=== PATIENT | female | born 2000 | race Caucasian/White ===

== ENCOUNTER 2022-11-22 05:30 | Observation (INO) ==
--- NOTE | 2022-11-12 10:24 | Anesthesiology Consultation ---
Date of Service November 12, 2022 Assessment & Plan (1) Encounter for pre-operative examination: Chart Review Chart Review: Acceptable Risk for Surgery and Patient NOT seen in Pre Admission Testing - Check test AM DOS Transgender male -COVID screening: Per PAT nursing assessment on 11/12/22. No known COVID-19 positive contacts or current COVID-19 related symptoms. Travel screen negative. Patient vaccinated for Covid. At surgeon discretion if preop Covid testing being done. Last seen by PCP 10/29/22= Seen for 6-month follow-up. Transgender male. Scheduled for a JD this month to help with transition and ongoing gender dysphoria. Depressioncontinue management with psychiatrystable. History Surgery Operation Date: 11/22/22 08:50 Proposed Procedures p Laparoscopic Total Hysterectomy, Cystoscopy, Bilateral Salpingectomy, Possible Laparotomy - Ant Desai MD Height/Weight Height: 5 ft 5 in Weight: 61.235 kg Allergies Allergy/AdvReac Type Severity Reaction Status Date / Time No Known Allergies Allergy Verified 11/12/22 09:33 Medications Home Medications Medication Instructions Recorded Confirmed Last Taken cholecalciferol (vitamin D3) 50 50 mcg PO QPM 11/12/22 11/12/22 Unknown mcg (2,000 unit) capsule (Vitamin D3) doxycycline hyclate 50 mg tablet 50 mg PO QPM 11/12/22 11/12/22 Unknown lurasidone 40 mg tablet (Latuda) 40 mg PO PM 11/12/22 11/12/22 Unknown sertraline 50 mg tablet (Zoloft) 50 mg PO QPM 11/12/22 11/12/22 Unknown testosterone 50 mg/5 gram (1 %) 1.5 tube transdermal QAM 11/12/22 11/12/22 Unknown transdermal gel Past Medical History Medical History Anxiety PTSD (post-traumatic stress disorder) Schizoaffective disorder Past Family History Family History Other No family history of adverse response to anesthesia Past Surgical History Surgical History History of wisdom tooth extraction Social History Smoking Status: Never smoker Do You Dip or Chew Tobacco: No Hx Alcohol Use: No Hx Substance Use: No substance use type: does not use Testing Laboratory Results 11/05/22= WBC: 6.15 H/H: 15.6/47.0 PLATELETS: 291
[2022-11-22] MEDS ORDERED: ceFAZolin 2000MG 2,000 MG/15 ML SYR IV SCH (06:00)
[2022-11-22] MEDS ORDERED: LR 15ML/HR IV SCH (06:00)
[2022-11-22] MEDS ORDERED: LACTATED RINGER'S 1,000 ML IV SCH ×2 (06:00→10:00)
[2022-11-22] MEDS ORDERED: fentaNYL citrate PF 100 MCG/2 ML VIAL ONE ×2 (06:37→07:33)
[2022-11-22] MEDS ORDERED: MIDAZOLAM HCL 1 MG/ML 2ML VIAL ONE (06:37)
[2022-11-22] MEDS ORDERED: LIDOCAINE 2% MPF LOCAL 5 ML VIAL ONE (06:47)
[2022-11-22] MEDS ORDERED: DEXAMETHASONE SOD INJ 4 MG/ML VIAL ONE (06:47)
[2022-11-22] MEDS ORDERED: PROPOFOL IV EMULSION 10 MG/ML 20 ML VIAL IV ONE (06:47)
[2022-11-22] MEDS ORDERED: ROCURONIUM BROMIDE 10 MG/ML 5 ML VIAL IV ONE (06:47)
[2022-11-22] MEDS ORDERED: ACETAMINOPHEN 1000 MG/100 ML IV IV ONE (06:48)
[2022-11-22] MEDS ORDERED: ePHEDrine sulfate 50 MG/ML AMP IV PRN (06:54)
[2022-11-22] MEDS ORDERED: HYDROmorphone INJ 1 MG/ML SYRINGE IV PRN (06:54)
[2022-11-22] MEDS ORDERED: ONDANSETRON INJ 2 MG/ML 2 ML VIAL IV PRN ×2 (06:54→09:51)
[2022-11-22] MEDS ORDERED: ATROPINE SULFATE 0.1 MG/ML 10ML SYR IV PRN (06:54)
[2022-11-22] MEDS ORDERED: fentaNYL citrate PF 100 MCG/2 ML VIAL IV PRN (06:54)
[2022-11-22] MEDS ORDERED: METOCLOPRAMIDE HCL INJ 5 MG/ML 2 ML VIAL IV PRN (06:54)
[2022-11-22] MEDS ORDERED: METHYLENE BLUE 0.5% 10 ML VIAL ONE (06:59)
[2022-11-22] MEDS ORDERED: BUPIVACAINE 0.5 % 5 MG/1 ML MPF 30ML VIAL ONE (06:59)
--- NOTE | 2022-11-22 07:08 | History & Physical Bridge Note ---
Date of Service November 22, 2022 History & Physical Bridge Note I have examined the patient, reviewed the History & Physical and in the interval since the performance of the History & Physical I have noted the following changes of clinical significance: no changes noted
[2022-11-22] MEDS ORDERED: ePHEDrine sulfate 50 MG/ML SYR ONE (08:04)
[2022-11-22] MEDS ORDERED: KETOROLAC 30 MG/ML VIAL ONE (08:57)
[2022-11-22] MEDS ORDERED: FLOSEAL HEMOSTATIC MATRIX 10ML TOP ONE (08:57)
[2022-11-22] MEDS ORDERED: GLYCOPYRROLATE 0.2 MG/ML VIAL ONE (08:58)
[2022-11-22] MEDS ORDERED: NEOSTIGMINE METHYLSULFATE 1 MG/ML 10ML VIAL ONE (08:58)
[2022-11-22] MEDS ORDERED: MEPERIDINE HCL 25 MG/ML CARP/VIAL ONE (09:34)
[2022-11-22] MEDS ORDERED: MEPERIDINE HCL 50 MG/ML CARP IV STA (09:38)
[2022-11-22] MEDS ORDERED: SIMETHICONE 80 MG CHEW PO PRN (09:51)
[2022-11-22] MEDS ORDERED: ZOLPIDEM TARTRATE 5 MG TAB PO PRN (09:51)
[2022-11-22] MEDS ORDERED: oxyCODONE/ACETAMINOPHEN 5mg/325mg TAB PO PRN (09:51)
[2022-11-22] MEDS ORDERED: MAGNESIUM HYDROXIDE SUSP 30 ML UDC PO PRN (09:51)
--- NOTE | 2022-11-22 09:58 | Post Operative Brief Note ---
Immediate Post Op Note v1 Date of Surgery November 22, 2022 Pre & Post Diagnosis Operation Date: 11/22/22 07:00 Pre-Op Diagnosis: Gender Dysphoria Post-Op Diagnosis: Gender Dysphoria I identified the patient and participated in the time-out.: Yes Procedure Operation Date: 11/22/22 07:00 Actual Procedures p Laparoscopic Total Hysterectomy, Bilateral Salpingectomy, (Bilateral) - Ant Desai MD s Cystoscopy - Ant Desai MD Surgeon Ant Desai MD [employer] yunior serra Estimated Blood Loss 10 Findings Consistent with Post-Op Diagnosis
--- NOTE | 2022-11-22 10:16 | Anesthesiology Progress Note ---
Date of Service November 22, 2022 Anesthesia Post Procedure Vital Signs Vital Signs: Temp Pulse Pulse Resp BP Pulse Ox O2 Del Method 11/22/22 10:05 80 16 96/69 L 100 Nasal Cannula 11/22/22 09:55 68 18 109/71 96 Oxymask 11/22/22 09:45 36.2 C L 76 16 109/68 100 Oxymask 11/22/22 09:37 36.2 C L 98 H 13 109/75 99 Oxymask 11/22/22 05:58 36.7 C 84 20 123/91 99 Room Air O2 Flow Rate 11/22/22 10:05 2 11/22/22 09:55 5 11/22/22 09:45 8 11/22/22 09:37 8 11/22/22 05:58 Pain Intensity Lower Abdomen: Pain Intensity: 2 Transfer of Care Handoff Completed per policy Notes Mental Status: alert / awake / arousable and participated in evaluation Nausea / Vomiting: adequately controlled Pain: adequately controlled Airway Patency, RR, SpO2: stable & adequate BP & HR: stable & adequate Hydration State: stable & adequate Anesthetic Complications: no major complications apparent and Pt Satisfied with anesthetic care
--- NOTE | 2022-11-22 13:05 | Operative Report (OR) ---
DATE OF SURGERY: 11/22/[address]22 PLACE OF DICTATION: [facility]. INDICATION FOR SURGERY: This is a 22-year-old with gender dysphoria and irregular menses who wishes to have hysterectomy and bilateral salpingectomy. PREOPERATIVE DIAGNOSES: 1. Gender dysphoria. 2. Irregular menses. POSTOPERATIVE DIAGNOSES: 1. Gender dysphoria. 2. Irregular menses. PROCEDURES: 1. Total laparoscopic hysterectomy. 2. Bilateral salpingectomy. 3. Cystoscopy. SURGEON: Ant Desai MD TRAVEL AGENCY MANAGER: FELIX Stafford ATTESTATION FOR TRAVEL AGENCY MANAGER: Technology Instructor was necessary to help with manipulation and retraction in order to provide for safe surgery. ANESTHESIA: General. ESTIMATED BLOOD LOSS: 10 mL. INTRAVENOUS FLUIDS: 1500 mL. URINE OUTPUT: 150 mL clear urine at end of the procedure. SPECIMENS: Uterus with cervix, left and right fallopian tubes. INTRAOPERATIVE COMPLICATIONS: None. PATIENT CONDITION: Stable. DISPOSITION: Postanesthesia care unit. ATTESTATION: I performed the entire procedure. FINDINGS: Female escutcheon. Cervix and vagina appeared grossly normal. Laparoscopic findings show ed about 8-week size uterus. Both fallopian tubes and ovaries identified. Appendix appeared grossly normal. There are no adhesions in the pelvis or abdomen. Ureters were identified on both sides trace or to surgery. DESCRIPTION OF PROCEDURE: The patient was taken to the operating room where she was prepped and drap ed in normal sterile fashion in dorsal lithotomy position. Time-out was called. Alonso catheter was placed in the bladder. A weighted speculum was placed in the vagina. A uterine manipulator was plac ed in the uterus to help manipulate the uterus and to help with colpotomy. Attention was paid to the abdominal part of the procedure where a supraumbilical incision was made wi th a scalpel. Veress needle was introduced into the abdomen at a 45-degree angle while tenting up th e abdomen. Water drop and suction test was performed. Intra-abdominal placement was confirmed. Abdo men was insufflated with 3 liters of CO2 gas. Veress needle was removed. A 5 mm nonbladed trocar wa s attached to laparoscope and introduced into the abdomen at a 45-degree angle under direct visualiza tion. Once inside the abdomen, the findings as dictated above. Laparoscope was repositioned. Three more accessory ports were placed on the left, an 11 mm trocar and 2 more 5s placed, one 5 was placed on the contralateral side to help with assistance. Upon first entry, the patient was placed in Trendelenburg position. The abdominal cavity was inspect ed. There appeared to be no adhesions in the abdomen or pelvis. The ureters identified on both side s. Appendix was identified and appeared to be grossly normal. The uterus, as stated above, is about 6-8 weeks' size. The bladder, the uterosacral ligaments, the bowel and cecum appeared grossly jeffrey l. LigaSure was passed through the left accessory port. The left fallopian tube was identified and grabbed 4 cm from the cornua of the uterus with the LigaSure and transected. This was followed by op ening of the left anterior leaf of the broad ligament. The mid-section of the left fallopian tube, u tero-ovarian and mesovarium pedicles were transected as well. Same procedure was performed on the co ntralateral side. The anterior broad ligament dissection was carried to the mid-section of the vesic outerine peritoneum over the bladder using the Harmonic scalpel. Same procedure was carried out on t he contralateral side. The posterior broad ligament peritoneum was carefully dissected, also from lucretia th sides over the uterosacral arch in order to display the ureters laterally. Using traction and countertraction, [place] retractors and irrigation probe was used to further diss ect the bladder off the lower segment of the uterus. Bladder pillars and pubovesical fascia was diss ected as well. The Harmonic scalpel was used to obtain hemostasis when needed. The uterine manipula tor was now palpable over the vaginal tissue. The right uterosacral pedicles were skeletonized and c oagulated using the LigaSure. Good hemostasis obtained. Same procedure was performed on the contral ateral side. The cardinal ligaments were transected on both sides. Once again, hemostasis was obtai jennifer. Colpotomy was performed using the LigaSure hook from both sides. Uterus was removed through th e vagina while still attached the uterine manipulator. The bulb attached to the uterine manipulator was reinserted into the vagina to establish pneumoperitoneum. With a grasper, the remaining section of the left tube was positioned anteromedially and salpingectom y performed. Ovaries on both sides are conserved. This was performed on both sides. EndoStitch closure device was passed through the 11 mm port on the left, and using the [place] grasp er for traction, the colpotomy closure was performed. The uterosacral ligaments are incorporated int o the closure in order to decrease the risks of prolapse. Lapra-Tys were used with EndoStitch. FloS eal was used for hemostasis as well. The 11-mm trocar site was closed with a suture passer under direct visualization. Attention was paid to the cystoscopy part of the procedure where a cystoscope was introduced into the bladder. A bubble could be seen confirming a closed cavity. Both ureteral orifices were identified and bilateral efflux of urine from both sides identified. All instruments were removed once again from the bladder. The abdominal incisions were closed as fol lows: The 11 mm site was closed with Vicryl stitch. The 5 mm incision sites were closed with Dermab ond. All instruments were removed from the abdomen and the vagina and accounted for x2 including sponges, needles, retractors, and other laparoscopic instruments. The patient was sent to recovery in stable condition. Job ID: [id number]
[2022-11-22] MEDS: IBUPROFEN 600 MG TAB PO PRN ×2 (15:28→21:08)
[2022-11-22] MEDS: oxyCODONE/ACETAMINOPHEN 5mg/325mg TAB PO PRN ×2 (19:24→23:57)
[2022-11-22] MEDS: DOCUSATE SODIUM 100 MG CAP PO SCH (21:04)
[2022-11-23] MEDS: oxyCODONE/ACETAMINOPHEN 5mg/325mg TAB PO PRN (07:09)
[2022-11-23] MEDS: DOCUSATE SODIUM 100 MG CAP PO SCH (07:09)
[2022-11-23 07:58] LABS: Basophils # (auto) 0.02 K/uL (0-0.2); Basophils % (auto) 0.2 %; Eosinophils # (auto) 0.01 K/uL (0-0.50); Eosinophils % (auto) 0.1 %; Hematocrit (blood only) 38.4 % (37.0-47.0); Hemoglobin 13.4 g/dl (12.0-16.0); Immature Granulocytes # (auto) 0.04 K/uL (0.01-0.20); Immature Granulocytes % (auto) 0.4 %; Lymphocytes # (auto) 2.22 K/uL (1.2-3.4); Lymphocytes % (auto) 21.5 %; Mean Corpuscular Hemoglobin 31.2 pg (25.0-34.0); Mean Corpuscular Hgb Conc 34.9 g/dL (32.0-36.0); Mean Corpuscular Volume 89.5 fL (80.0-100.0); Mean Platelet Volume 9.9 fL (9.4-12.4); Monocytes # (auto) 0.92 K/uL (0.11-0.59); Monocytes % (auto) 8.9 %; Neutrophils # (auto) 7.12 K/uL (1.40-6.50); Neutrophils % (auto) 68.9 %; Platelet Count 209 K/uL (130-400); RDW Coefficient of Variation 12.4 % (11.5-14.5); RDW Standard Deviation 40.3 fL (36.4-46.3); Red Blood Count 4.29 M/uL (4.20-5.40); White Blood Count 10.33 K/ul (4.8-10.8)
[2022-11-23 08:01] LABS: BUN Creatinine Ratio 10.8 (10-20); Calcium 8.6 mg/dl (8.6-10.3); Creatinine Clr Calc Pharmacy 95.7 ml/min; Est GFR (Non-African American) 100.1 ml/min; Potassium 3.5 mmol/L (3.5-5.1)
--- NOTE | 2022-11-23 09:33 | Obstetrical Progress Note ---
Date of Service November 23, 2022 Assessment & Plan (1) S/P laparoscopic hysterectomy: Pt doing well No complaints d/c home with instructions Subjective Review of Systems All systems reviewed & are unremarkable except as noted in HPI & below Physical Exam Constitutional WD/WN, vitals as above Eyes PERRL, conjunctivae normal, anicteric sclerae ENMT external ear and nose normal, oropharynx normal Neck trachea midline, no thyromegaly Respiratory normal respiratory effort, lungs clear to auscultation Cardiovascular RRR, no murmur, no edema Chest (Breasts) normal inspection/palpation of breasts Gastrointestinal (Abdomen) normal bowel sounds, soft, nontender, no hepatosplenomegaly Musculoskeletal no cyanosis or clubbing, extremities motor strength 5/5 Skin + incision (Incision clean,dry and intact) Neurologic patellar DTR's 2+ bilat, sensation intact Psychiatric A+Ox3, euthymic affect Genitourinary no vaginal lesions, no adnexal mass Lymphatic no cervical or axillary lymphadenopathy Results & Data Vital Signs (Past 12 Hours) Vital Signs Temp Pulse Resp BP Pulse Ox O2 Del Method 11/23/22 07:30 36.8 C 81 16 109/67 99 Room Air 11/23/22 04:31 36.6 C 77 16 108/64 Room Air 11/22/22 23:18 36.8 C 81 16 103/57 L
--- NOTE | 2022-11-23 10:07 | Discharge Summary (DS) ---
DATE OF ADMISSION: 11/22/2022. DATE OF DISCHARGE: 11/23/2022. CHIEF COMPLAINT: A 22-year-old with gender dysphoria wishes to have hysterectomy. HISTORY OF PRESENT ILLNESS: This is a 22-year-old status post gender dysphoria, wishes to have hyste rectomy. The patient was admitted to [facility] on 11/22/2022, where he underwent a total laparoscopic hysterectomy with bilateral salpingectomy. Details of surgery is in the operati ve note. Surgery was otherwise unremarkable. Today, the patient is doing well and has been discharge d home in stable condition. PAST MEDICAL HISTORY: 1. Gender dysphoria. 2. Posttraumatic stress disorder. 3. Schizoaffective disorder. PAST SURGICAL HISTORY: Dental procedure. SOCIAL HISTORY: Denies tobacco, drug or alcohol use. FAMILY HISTORY: Noncontributory. ALLERGIES: No known drug allergies. REVIEW OF SYSTEMS: Negative except as dictated in the HPI. PHYSICAL EXAMINATION: GENERAL: Well-developed, well-nourished patient in no acute distress. VITAL SIGNS: Blood pressure 109/67, pulse 81, respirations 16, temperature 36.8. HEART: S1 and S2, regular rhythm and rate. LUNGS: Clear to auscultation bilaterally. ABDOMEN: Nontender, nondistended. Incision site is clean, dry and intact. EXTREMITIES: No cyanosis, clubbing or edema. LABORATORY DATA: This morning showed a hemoglobin of 13.4, hematocrit of 38.4, platelets 209. CONDITION ON DISCHARGE: Stable. OPERATION: Total laparoscopic hysterectomy with bilateral salpingectomy, and cystoscopy. PLAN ON DISCHARGE: The patient is discharged home with instructions regarding activity, diet, follow up appointment and medications. Job ID: [id number]
[2022-11-23] MEDS: IBUPROFEN 600 MG TAB PO PRN (11:47)
== END 2022-11-23 12:41 | disposition home or self-care (01) ==
LOC: ASU 05:30 → 4E2 05:30 → EDSEX 08:50